=== PATIENT | male | born 1985 | race Caucasian/White ===

== ENCOUNTER 2022-08-21 12:53 | Emergency (ER) | payer SELFPAY ==
[2022-08-21 12:57] VITALS: BP 140/83; PULSE 70; RESP 18; TEMP 36.7; O2SAT 98
--- NOTE | 2022-08-21 14:19 | ED.GENADUL_ITS ---
Discharge Plan Disposition Patient Disposition: Home Discharge Details Clinical Impression: Finger laceration Primary Care Provider: Joseline,Local ED Provider: Fan Nieves Discharge Instructions Instructions: Finger Laceration (ED) Additional Instructions: Wait at least 10 days before suture removal which can be performed here in the emergency department Medical Decision Making Aggressive irrigation of the wound after anesthesia. Closure with 3 simple interrupted sutures. Purposeful loose approximation given gross contamination. Had patient reirrigate the wound after closure. HPI General Date/Time Provider Initiated Documentation: 08/21/22 14:19 . HPI Narrative: Patient presents with laceration to the right hand. Third digit. 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 Attempted to glue the wound but was unsuccessful. Presented to the emergency department for definitive treatment. General Stated Complaint: Laceration LAKHWINDER: 4 Review of Systems Narrative: No significant contributory review of systems PFS All Active Problems (Updated 08/21/22 @ 14:25 by Fan Nieves MD) Finger laceration (Acute) Social History Smoking/Tobacco Use Status: Never Smoking risk assessment performed?: Yes Alcohol Intake: never Drug use: Never Do you feel safe at home: Yes Do you feel safe in your relationship?: Yes Exam Narrative Exam Narrative: Skin: Triangular flap-like laceration over the dorsum of the right third digit. Actively bleeding but nonpulsatile. Contamination of the wound with a tissue adhesive that the patient attempted to use. Also general on cleanliness of the area. Musculoskeletal: No gross deformity no bony injury Neurologic: No strength or sensory deficit Course Vital Signs Vital signs: Vital Signs Temperature 36.7 C 08/21/22 12:57 Pulse 70 08/21/22 12:57 Respiratory Rate 18 08/21/22 12:57 Blood Pressure 140/83 08/21/22 12:57 Pulse Oximetry 98 08/21/22 12:57 Temperature 36.7 C 08/21/22 12:57 Pulse 70 08/21/22 12:57 Respiratory Rate 18 08/21/22 12:57 Respiratory Effort Normal 08/21/22 13:01 Blood Pressure 140/83 08/21/22 12:57 Pulse Oximetry 98 08/21/22 12:57 Oxygen Delivery Method Room Air 08/21/22 12:57 Oxygen Flow Rate 0 08/21/22 12:57 Pain Level 0 08/21/22 12:57 Procedures Laceration Laceration 1: Site: hand Side (If applicable): right Size (cm): 3 Description: flap Depth: simple, single layer Local Anesthetic: Lidocaine 1% Amount of anesthesia used (mL): 1 Pre-repair: irrigated extensively Skin layer closed with: nylon Size (cm): 5-0 Number of sutures: 3 Technique: simple, interrupted
== END 2022-08-21 14:47 | disposition home or self-care (01) ==
PROVIDERS: Emergency Provider Emergency Medicine
DX: S61.212A Laceration without foreign body of right middle finger without damage to nail, initial encounter (principal); X58.XXXA Exposure to other specified factors, initial encounter
CPT/HCPCS: 12002; 90471

== ENCOUNTER 2024-06-01 17:52 | Outpatient (REF) | payer BC, SELFPAY ==
[2024-06-01 21:41] LABS: Abs Immature Grans 0.01 10^3/uL (0.0-0.06); Absolute Basophil Count 0.01 10^3/uL (0.0-0.2); Absolute Eosinophil Count 0.01 10^3/uL (0.0-0.7); Absolute Lymphocyte Count 0.95 10^3/uL (1.2-3.4); Absolute Monocyte Count 0.46 10^3/uL (0.1-0.8); Absolute Neutrophil Count 4.47 10^3/uL (1.2-6.7); Basophils % 0.2 %; Eosinophils % 0.2 %; HCT 44.1 % (40.0-50.0); HGB 15.6 g/dL (13.5-17.5); Immature Grans % 0.2 %; Lymphocytes % 16.1 %; MCH 30.8 pg (27.0-33.0); MCHC 35.4 % (32.0-36.0); MCV 87 fL (80-95); MPV 10.7 fL (8.0-11.0); Monocytes % 7.8 %; Neutrophils % 75.5 %; Platelet Count 270 10^3/uL (130-400); RBC 5.07 10^6/uL (4.36-5.78); RDW 12.3 % (11.8-14.1); RDW-SD 39.1 fL; WBC 5.91 10^3/uL (4.4-10.8)
[2024-06-01 22:22] LABS: ALT 26 U/L (16-63); AST 19 U/L (15-37); Albumin 4.2 g/dL (3.4-5.0); Alkaline Phosphatase 66 U/L (46-116); Anion Gap 11.6 mmol/L (3-11); BUN 25 mg/dL (7-18); Bilirubin, Total 0.5 mg/dL (0.2-1.0); CO2 24.4 mmol/L (21.0-32.0); Calcium 9.6 mg/dL (8.5-10.1); Chloride 107 mmol/L (98-107); Estimated GFR 97.58 (mL/min/1.73m2); Glucose 100 mg/dL (74-106); Potassium 4.2 mmol/L (3.5-5.1); Sodium 143 mmol/L (136-145); Total Protein 7.4 g/dL (6.4-8.2)
[2024-06-02 19:22] LABS: HIV-1/2 Ag & Ab Screen Negative (Negative)
== END 2024-06-01 17:53 | disposition home or self-care (01) ==
LOC: NCHCN 17:52
PROVIDERS: Visit Provider Family Medicine
DX: Z01.818 Encounter for other preprocedural examination (principal); Z00.00 Encounter for general adult medical examination without abnormal findings
CPT/HCPCS: 80053; 87389; 85025

== ENCOUNTER 2024-06-02 12:17 | Outpatient (CLI) | payer BC, SELFPAY ==
--- NOTE | 2024-06-02 | DI.RAD_ITS ---
Exam(s) XR CHEST 2V PA LATERAL EXAM: XR CHEST 2V PA LATERAL CLINICAL HISTORY: CHRONIC COUGH, R05.3 TECHNIQUE: 2D digital imaging was performed. Two views. COMPARISON: No exams were available for comparison FINDINGS: HEART: Normal size. Aorta: Not dilated. PULMONARY VASCULATURE: Normal. MEDIASTINUM: Unremarkable. LUNGS: Clear. PLEURAL SPACE: No pleural effusion or pneumothorax. BONE:Unremarkable for age. SOFT TISSUES: Unremarkable. IMPRESSION: No acute abnormality. DATA REPOSITORY: RADIATION DOSE DELIVERED:
== END 2024-06-02 12:37 ==
LOC: DI 12:18
PROVIDERS: PCP Family Medicine; Visit Provider Family Medicine
DX: R05.3 Chronic cough (principal)
CPT/HCPCS: 71046

== ENCOUNTER 2024-07-31 01:08 | Outpatient (CLI) | payer BC, SELFPAY ==
[2024-07-31] MEDS: Inhaler, Assist Device 1 EACH MC (11:16)
[2024-07-31] MEDS: Levalbuterol HFA 15 GM INH 4 PUFF IH (11:16)
--- NOTE | 2024-08-30 08:56 | W.PFT ---
Date of service: 07/01/24 Time of Service: 10:02 Pulmonary Function Test Result Indications: Dyspnea on exertion Interpretation Spirometry: No airflow limitation. No bronchodilator response Lung Volumes: Normal lung volumes Diffusion Capacity: Normal diffusion Airway Pressure: Normal airways resistance Impression Normal pulmonary function testing Clinical Correlation therefore is recommended.
== END 2024-07-31 01:09 | disposition home or self-care (01) ==
LOC: RT 01:08
PROVIDERS: PCP Family Medicine; Visit Provider Student in an Organized Health Care Education/Training Program
DX: R05.3 Chronic cough (principal)
CPT/HCPCS: 94060; 94726; 94729